=== PATIENT | female | born 1970 | race Caucasian/White ===

== ENCOUNTER 2018-09-09 19:13 | Emergency (ER) | payer BC, OTHER ==
[~2018-09-09] VITALS: Ht 162.6 cm; Wt 69.0 kg
[2018-09-09] MEDS ORDERED: OXYB5TAB7 PO (19:26)
[2018-09-09] MEDS ORDERED: LISI-167 PO (19:26)
--- NOTE | 2018-09-09 19:26 | NUR ---
BIB EMS FROM [facility] FOR C/O 11/26 LEFT CP DESCRIBED "SHARP PRESSURE" STARTING TODAY AT 1300. PT. REPORTS PAIN IS CONSTANT AND IS WORSE WITH INSPIRATION. RADIATES TO LEFT UPPER BACK. PT. ALSO C/O ABD PAIN OVER THE WEEKEND THAT RADIATES TO FLANK BILAT. DENIES INJURY. DENIES ANY LEG SWELLING OR RECENT LONG TRAVEL. HX OF HTN. EKG COMPLETED AND PRESENTED TO ERMD. CONTINUOUS PULSE OX, B/P, AND HEART MONITORS APPLIED. NSR ON MONITOR. CALL LIGHT IN REACH. ALL SAFETY MEASURES OBSERVED.
--- NOTE | 2018-09-09 19:34 | NUR ---
IVELISSE HALE IN TO EVAL PT. AND DISCUSS POC. PT. PROVIDED WITH WATER AFTER OK FROM IVELISSE HALE. PT. DENIES OTHER NEEDS.
[2018-09-09] MEDS ORDERED: ASPIRIN 81 MG TABLET CHEW ONE (19:46)
--- NOTE | 2018-09-09 19:56 | NUR ---
PT. BACK FROM X-RAY. MEDICATED PER MAR. VS UPDATED AND REMAIN STABLE. LAB AT FOR BLOOD DRAW.
[2018-09-09] MEDS ORDERED: ASPIRIN 81 MG TABLET CHEW PO ONE (20:00)
[2018-09-09 20:18] LABS: ANION GAP 10 mmol/L (5-15); CALCIUM 8.9 mg/dL (8.5-10.1); CHLORIDE 110 mmol/L (98-107)
[2018-09-09 20:23] LABS: BASOPHILS # (AUTO) 0.02 x10^3/uL (0-0.1); BASOPHILS % (AUTO) 1 % (0-1); CREATININE 1.01 mg/dL (0.55-1.02); EOSINOPHILS % (AUTO) 2 % (1-7); LYMPHOCYTES # (AUTO) 1.36 x10^3/uL (1-3.4); LYMPHOCYTES % (AUTO) 32 % (22-44); MD NO; MEAN CORPUSCULAR HEMOGLOBIN 31.8 pg (27.0-34.8); MEAN CORPUSCULAR HGB CONC 34.7 g/dL (32.4-35.8); MEAN CORPUSCULAR VOLUME 91.4 fL (80-100); MEAN PLATELET VOLUME 9.4 fL (7.4-10.4); MONOCYTES # (AUTO) 0.37 x10^3/uL (0.2-0.8); MONOCYTES % (AUTO) 9 % (2-9); NEUTROPHILS # (AUTO) 2.36 x10^3/uL (1.8-6.8); NEUTROPHILS % (AUTO) 56 % (42-75); PLATELET COUNT 222 x10^3/uL (130-400); RED BLOOD COUNT 4.16 x10^6/uL (3.82-5.3); RED CELL DISTRIBUTION WIDTH 12.6 % (9.6-15.2); TROPONIN I < 0.015 ng/mL (0.000-0.045)
--- NOTE | 2018-09-09 20:44 | NUR ---
PT. AMBULATORY TO BR WITH STEADY GAIT. CHART NOW UP FOR RECHECK BY [facility]MTanner.
[2018-09-09] MEDS ORDERED: POTASSIUM CHLORIDE 20 MEQ TAB.ER.PRT ONE (20:54)
[2018-09-09] MEDS ORDERED: POTASSIUM CHLORIDE 20 MEQ TAB.ER.PRT PO ONE (21:00)
--- NOTE | 2018-09-09 21:26 | NUR ---
GEOFFREY, PA AT BS TO DISCUSS D/C PLAN WITH PT.
--- NOTE | 2018-09-09 21:40 | NUR ---
IVELISSE HALE REMAINS AT BS TO DISCUSS POC AND D/C PLAN.
[2018-09-09] MEDS ORDERED: KETOROLAC 30 MG/1 ML IM ONE (22:00)
[2018-09-09] MEDS ORDERED: KETOROLAC 30 MG/1 ML ONE (22:23)
--- NOTE | 2018-09-09 22:37 | NUR ---
IS AND INSTRUCTIONS FOR USE GIVEN TO PT. PT. ABLE TO DEMONSTRATE PROPER USE OF IS.
[2018-09-09 23:05] VITALS: BP 199/101
--- NOTE | 2018-09-09 23:05 | NUR ---
DISCUSSED CURRENT VS WITH DR. TEJEDA PRIOR TO D/C PT. PER DR. TEJEDA OK TO D/C PT. HOME. PT. DOES REPORT SHE HAS THE RX TO GET BP MEDS FILLED AT HOME ALREADY. PT. AMBULATED TO BR WITH STEADY GAIT AT THIS TIME.
== END 2018-09-09 23:09 | disposition home or self-care (01) ==
LOC: ED 23:05
DX: S46.912A Strain of unspecified muscle, fascia and tendon at shoulder and upper arm level, left arm, initial encounter (principal); I10 Essential (primary) hypertension; E87.6 Hypokalemia; J15.9 Unspecified bacterial pneumonia; Z90.710 Acquired absence of both cervix and uterus; X58.XXXA Exposure to other specified factors, initial encounter; Y93.89 Activity, other specified; Y92.89 Other specified places as the place of occurrence of the external cause; Y99.8 Other external cause status
CPT/HCPCS: 36415; 71046; 80048; 82040; 84484; 85025; 85379; 93005; 96372; 99284; J1885

== ENCOUNTER → 2020-03-24 | Outpatient (CLI) | payer OTHER ==
[~2020-03-24] MED LIST: LISI-167 PO; OXYB5TAB10 PO
== END | disposition home or self-care (01) ==
LOC: CFH 07:51
PROVIDERS: ATTEND Orthopaedic Surgery
DX: S52.611A Displaced fracture of right ulna styloid process, initial encounter for closed fracture (principal); S52.501A Unspecified fracture of the lower end of right radius, initial encounter for closed fracture; X58.XXXA Exposure to other specified factors, initial encounter; Y93.89 Activity, other specified; Y92.89 Other specified places as the place of occurrence of the external cause; Y99.8 Other external cause status

== ENCOUNTER 2020-10-06 16:14 | Emergency (ER) | payer OTHER ==
[~2020-10-06] VITALS: Ht 160 cm; Wt 78.3 kg
--- NOTE | 2020-10-06 16:45 | NUR ---
GEOPHYSICAL PARTY CHIEF: PT TO ROOM FROM LOBBY.
--- NOTE | 2020-10-06 17:04 | NUR ---
ASSUMED CARE OF PATIENT. PATIENT REPORTS SHE HAS HAD BILATERAL LOWER ABD PAIN AND LOW BACK PAIN. VS STABLE. AT BEDSIDE. CALL LIGHT IN PLACE. WILL CONTINUE TO MONITOR.
--- NOTE | 2020-10-06 17:23 | NUR ---
DR WAYNE IN ROOM
[2020-10-06] MEDS ORDERED: SODIUM CHLORIDE FLUSH 10ML SYR IVF ONE (17:30)
[2020-10-06] MEDS ORDERED: ONDANSETRON 2MG/ML, 2ML IVPush ONE ×2 (17:30→20:30)
[2020-10-06] MEDS ORDERED: MORPHINE SULFATE 4 MG/ML, 1ML IVPush PRN (17:30)
[2020-10-06] MEDS ORDERED: ONDANSETRON 2MG/ML, 2ML ONE ×2 (17:32→20:05)
[2020-10-06] MEDS ORDERED: MORPHINE SULFATE 4 MG/ML, 1ML ONE (17:32)
[2020-10-06 17:48] LABS: BASOPHILS % (AUTO) 1 % (0-1); EOSINOPHILS % (AUTO) 4 % (1-7); LYMPHOCYTES % (AUTO) 33 % (22-44); MEAN CORPUSCULAR HEMOGLOBIN 32.2 pg (27.0-34.8); MEAN CORPUSCULAR HGB CONC 34.8 g/dL (32.4-35.8); MEAN PLATELET VOLUME 9.3 fL (7.4-10.4); MONOCYTES % (AUTO) 10 % (2-9); NEUTROPHILS % (AUTO) 52 % (42-75); PLATELET COUNT 271 x10^3/uL (130-400); RED BLOOD COUNT 4.13 x10^6/uL (3.82-5.3); RED CELL DISTRIBUTION WIDTH 12.3 % (9.6-15.2)
[2020-10-06 17:50] LABS: MICROSCOPIC NOT IND
[2020-10-06 17:51] LABS: MD NO
[2020-10-06 17:55] LABS: ALANINE AMINOTRANSFERASE 25 U/L (12-78); ALBUMIN 3.6 g/dL (3.4-5.0); ANION GAP 6 mmol/L (5-15); CALCIUM 8.8 mg/dL (8.5-10.1); CHLORIDE 106 mmol/L (98-107); CREATININE 0.93 mg/dL (0.55-1.02)
[2020-10-06 17:58] LABS: ALKALINE PHOSPHATASE 71 U/L (45-117); BILIRUBIN,TOTAL 0.4 mg/dL (0.2-1.0)
--- NOTE | 2020-10-06 18:26 | NUR ---
DR WAYNE IN ROOM
--- NOTE | 2020-10-06 18:36 | NUR ---
PT RESTING IN ROOM. PT TO GET A CT. FAMILY AT BEDSIDE. NO ACUTE DISTRESS NOTED. CALL LIGHT IN PLACE. WILL CONTINUE TO MONITOR.
--- NOTE | 2020-10-06 19:00 | NUR ---
TASK RN: PT RESTING ON GURNEY. NADN. CONNOLLY.
--- NOTE | 2020-10-06 19:48 | NUR ---
PT RESTING IN ROOM. VS STABLE. NO ACUTE DISTRESS NOTED. CALL LIGHT IN PLACE. WILL CONTINUE TO MONITOR.
--- NOTE | 2020-10-06 19:50 | NUR ---
PT WENT TO CT
[2020-10-06] MEDS ORDERED: OMNIPAQUE 350 MG/ML, 100ML BOTTLE ONE (20:07)
--- NOTE | 2020-10-06 20:21 | NUR ---
PT HAD SOME NAUSEA AFTER CT. VS STABLE. CALL LIGHT IN PLACE. WILL CONTINUE TO MONITOR.
--- NOTE | 2020-10-06 20:34 | NUR ---
DR WAYNE HAS UPDATED PATIENT
[2020-10-06] MEDS ORDERED: SODIUM CHLORIDE 0.9% 1,000ML IVBOLUS ONE (21:00)
[2020-10-06] MEDS ORDERED: NALOXONE 0.4 MG/ML, 1ML IVPush ONE (21:30)
[2020-10-06] MEDS ORDERED: FAMOTIDINE 20 MG/2 ML IVPush ONE ×2 (21:30→22:00)
[2020-10-06] MEDS ORDERED: methylPREDNISolone SOD SUCC 125 MG/2 ML IVPush ONE (21:30)
[2020-10-06] MEDS ORDERED: NALOXONE 0.4 MG/ML, 1ML ONE (21:32)
--- NOTE | 2020-10-06 21:43 | NUR ---
PT HAVING NAUSEA. PT GIVEN NARCAN PER DR WAYNE. PT REPORTS SHE IS FEELING BETTER. AT BEDSIDE. CALL LIGHT IN PLACE. WILL CONTINUE TO MONITOR.
[2020-10-06] MEDS ORDERED: METOCLOPRAMIDE 5 MG/ML, 2ML ONE (21:51)
[2020-10-06] MEDS ORDERED: FAMOTIDINE 20 MG/2 ML ONE (21:51)
[2020-10-06] MEDS ORDERED: METOCLOPRAMIDE 5 MG/ML, 2ML IVPush ONE (22:00)
--- NOTE | 2020-10-06 22:23 | NUR ---
pt ambulated to bathroom. vs stable. call light in place. will continue to monitor.
[2020-10-06 23:02] VITALS: BP 117/69
--- NOTE | 2020-10-06 23:19 | NUR ---
PT'S PULSE OX DIPS TO MID 80'S WHILE SLEEPING. DR WAYNE AWARE. DR WAYNE TO BEDSIDE. PT ADAMANT SHE WANTS TO GO HOME. PT IS 98% RA WHILE AWAKE. PT IS A&O X4. PT IS ABLE TO SAFELY AMBULATE AROUND ROOM AND [facility]. ALSO REPORTS THEY WANT TO BE DISCHARGED. PT GIVEN A REFERRAL FOR PULMONOLOGY. PT DISCHARGED PER DR WAYNE.
== END 2020-10-06 23:37 | disposition home or self-care (01) ==
LOC: ED 21:06
DX: S39.012A Strain of muscle, fascia and tendon of lower back, initial encounter (principal); S33.5XXA Sprain of ligaments of lumbar spine, initial encounter; R10.32 Left lower quadrant pain; R10.31 Right lower quadrant pain; I10 Essential (primary) hypertension; Z90.710 Acquired absence of both cervix and uterus; X58.XXXA Exposure to other specified factors, initial encounter; Y93.89 Activity, other specified; Y92.89 Other specified places as the place of occurrence of the external cause; Y99.8 Other external cause status
CPT/HCPCS: 36415; 74177; 80053; 81003; 81025; 83690; 85025; 96361; 96374; 96375; 96376; 99285; J2270; J2310; J2405; J2765; J7030; Q9967